=== PATIENT | male | born 2000 | race Caucasian/White ===

== ENCOUNTER 2019-01-25 04:24 | Emergency (ER) | payer OTHER, BC, SELFPAY ==
[2019-01-25 04:25] VITALS: BP 114/76; PULSE 122; RESP 18; TEMP 37.9; O2SAT 96; BMI 26.9
--- NOTE | 2019-01-25 04:40 | RAD_ITS ---
STUDY: X-RAY CHEST REASON FOR EXAM: Male, 18 years old. Cough TECHNIQUE: Frontal and lateral views of the chest. COMPARISON: None. FINDINGS: The lungs are clear and expanded. There is no demonstrated pleural abnormality. Normal size heart. Normal mediastinum and josh. Normal visualized pulmonary arteries. Normal visualized aortic arch and descending thoracic aorta. Normal visualized thoracic spine. Normal visualized ribs, clavicles, and shoulders. There is no demonstrated abnormality of the visualized soft tissue structures of the upper abdomen. RAD/Chest PA and Lateral IMPRESSION: Normal x-ray examination of the chest. Electronically Signed: Balwinder Torres MD at 5:18 EDT Tel , Service support ,
[2019-01-25] MEDS: 0.9% Normal Saline 1,000 ML 999 ML IV (04:52)
[2019-01-25] MEDS: Metoclopramide 10 MG/2 ML Vial IV (04:52)
[2019-01-25] MEDS: Ketorolac 30 MG/ML Syringe IV (04:54)
[2019-01-25 06:25] VITALS: BP 110/60; PULSE 96; RESP 16; TEMP 36.9; O2SAT 98
--- NOTE | 2019-01-25 06:26 | ED.VISSUMM ---
- ER Visit Summary Date of Service: 01/25/19 Chief Complaint: I feel really bad History of Present Illness: The patient is a 18 M who presents with an influenza-like illness. He complains of 1 day of fever chills sweats. He had a temperature of 102.9. He complains of congestion rhinorrhea productive cough muscle aches joint aches headaches. He is concerned because he was recently visiting home with his brother who was diagnosed with mononucleosis, influenza, walking pneumonia. He also states that there was nearby outbreak of mumps. He states he started taking some leftover Augmentin that he had. No vomiting. No diarrhea. No shortness of breath. Physical Examination: Temperature 100.2, heart rate 122 Pulse ox 96% on room air Patient is not toxic appearing He does appear slightly anxious Heart is regular rhythm tachycardia Lungs are clear Abdomen soft nontender Test Results: Chest x-ray is normal. Emergency Department Course and Treatment: Although patient is tachycardic he states that he has white coat syndrome and attributes some of this to anxiety. A chest x-ray was obtained which is normal. I told him that I do suspect that this is influenza. However given his age and lack of comorbidities I would not recommend Tamiflu at this point as I feel adverse effects would likely outweigh benefit. He was therefore advised on supportive care including anti-inflammatories and drinking fluids. He does understand return for new or worsening symptoms. He was discharged. Treatment Plan: [] Disposition: Discharge Impression: Influenza-like illness This note was generated with [employer] dictation software. It may contain incorrect words, spelling, and punctuation that were not noted in review of the chart prior to signing ED Disposition - Plan for ED Patient: Referrals: [facility] Doctor,Out of [Primary Care Provider] -
--- NOTE | 2019-01-25 06:28 | ED.DEP ---
ED Disposition - Plan for ED Patient: Instructions: ED Flu Referrals: [facility] Doctor,Out of [Primary Care Provider] -
== END 2019-01-25 06:40 | disposition home or self-care (01) ==
LOC: ED 05:00
PROVIDERS: Emergency Provider Emergency Medicine
DX: J11.1 Influenza due to unidentified influenza virus with other respiratory manifestations (principal); Z79.899 Other long term (current) drug therapy
CPT/HCPCS: 71046; 96361; 96374; 96375; 99283; J7030; A4216

== ENCOUNTER 2019-10-12 14:10 | Emergency (ER) | payer BC, SELFPAY ==
[2019-10-12 14:11] VITALS: BP 127/92; PULSE 101; RESP 18; TEMP 37.1; O2SAT 98; BMI 26.6
--- NOTE | 2019-10-12 14:26 | RAD_ITS ---
STUDY: X-RAY - RIGHT TIBIA AND FIBULA REASON FOR EXAM: Male, 18 years old. Midleg redness and swelling. TECHNIQUE: 3 view(s) of the tibia and fibula were obtained. COMPARISON: None. FINDINGS: Normal visualized tibia. Normal visualized fibula. There is no acute fracture, dislocation or destructive osseous pathology. The knee and ankle appear intact. The soft tissue structures are unremarkable. RAD/Tibia & Fibula 2 Views IMPRESSION: Normal x-ray examination of the tibia and fibula. Electronically Signed: Biran Jauregui DO at 16:19 EST Tel [phone], Service support ,
[2019-10-12] MEDS: Doxycycline 100 MG CAPSULE PO (14:30)
[2019-10-12] MEDS: Naproxen 250 MG Tablet 500 MG PO (14:30)
--- NOTE | 2019-10-12 15:29 | ED.VISSUMM ---
- ER Visit Summary Date of Service: 10/12/19 Chief Complaint: Redness to right leg History of Present Illness: The patient is a 18 M with no primary care physician. He reports that he was taking off his shoes 2 days ago and hit the anterior surface of his right leg with his left heel. Reports that he immediately had a small red torres. However, over the past 2 days the redness is extended and he is having more pain. Describes a sharp pain that is 7 out of 10 with walking and 2 out of 10 at rest. He denies any constitutional symptoms. No fever, chills, vomiting, or other complaints. Physical Examination: Vitals: Stable. Afebrile. General: Well-nourished and well-developed. Head: Normocephalic atraumatic. Neck: Supple, no lymphadenopathy. No JVD. Nontender. Cardiovascular: Regular rate and rhythm. No murmurs. Respiratory: No respiratory distress. Clear to auscultation bilaterally. Abdominal: Soft, nontender, nondistended, normal bowel sounds. No guarding, rebound, or peritoneal signs. Back: Nontender. Extremities: Moderate tenderness palpation over the anterior surface of his right tibia. There is mild erythema. No induration or fluctuance to suggest abscess. He has a 2+ dorsalis pedis pulse. Neurologic: Alert and oriented ?3. Cranial nerves II through XII are intact. Normal strength and sensation. Psych: Normal affect. Test Results: Right tib-fib x-ray shows no acute disease. Emergency Department Course and Treatment: Patient was treated with naproxen and doxycycline. He is resting comfortably. Treatment Plan: Patient will be discharged naproxen and doxycycline. Instructed to follow-up Dr. Siu in 2 days for wound check. Return to the emergency department for any worsening symptoms. Disposition: To home in improved and stable condition. Impression: 1. Cellulitis right leg. This note was generated with [employer] dictation software. It may contain incorrect words, spelling, and punctuation that were not noted in review of the chart prior to signing ED Disposition - Plan for ED Patient: Disposition: Home or Assisted Living Instructions: Cellulitis Prescriptions: Doxycycline 100 mg PO BID #14 cap Prescription Printed Naproxen [Naprosyn] 500 mg PO BID #14 tab Prescription Printed Referrals: Irving Siu DO [NON CLINICAL AFFILIATE] - 2 Days for wound check
[2019-10-12 15:42] VITALS: BP 125/74; PULSE 82; RESP 18; O2SAT 97
== END 2019-10-12 15:43 | disposition home or self-care (01) ==
LOC: ED 14:38
PROVIDERS: Emergency Provider Emergency Medicine
DX: L03.115 Cellulitis of right lower limb (principal)
CPT/HCPCS: 73590; 99283

== ENCOUNTER 2020-01-06 05:33 | Emergency (ER) | payer BC, SELFPAY ==
[2020-01-06 05:34] VITALS: BP 122/85; PULSE 70; RESP 16; TEMP 36.7; O2SAT 100; BMI 27.6
--- NOTE | 2020-01-06 05:50 | ED.VIS.UPPEX ---
History of Present Illness Chief Complaint: Other, Pain/Inj Detail of Chief Complaint: Tight ring Informant: Patient Occurred: Today Onset: Today Context: Gradual Onset Timing: Continuous Quality of Pain: Aching - Sore Location: Right ring finger Current Severity: Mild Maximum Severity: Mild Worsened by: Trying to remove ring Relieved by: Leaving alone Associated Symptoms: Negative for: Parasthesia, Weakness, Loss of Funtion Narrative: Patient has had a ring on his right ring finger all day, he tried to get it off today but it is too tight and the more he has tried, the more swelling he is having in pain. He denies any numbness or pallor to his ring finger. Past Medical History - Allergies and Home Meds Allergies/Adverse Reactions: Allergies TAPE Allergy (Uncoded 01/06/20 05:34) Rash Primary Care Physician: Care Physician,No Primary [Primary Care Provider] - Past Medical History: None Lives: Roommate Smoking Status: Never smoker Review of Systems Musculoskeletal: Reports: Extremity Pain Neurological: Denies: Weakness, Parasthesia, Numbness Physical Exam Vital Signs/Narrative: Vital Signs Temp Pulse Resp BP Pulse Ox 01/06/20 05:34 98.1 F 70 16 122/85 H 100 General: Well nourished, Well developed Head: Normocephalic, Atraumatic Extremeties: Right ring finger with a yellow gold ring, it is loosely fitting until you pull it to the PIPJ, where it is tight and will not go beyond. No signs of ischemia. Skin intact. All tendon function intact. No sign of infection. Skin: Normal color, No rash, No Trauma - Skin intact right ring finger Neurological: Alert, Oriented x3, Cranial nerves II-XII grossly intact, Normal Strength, Normal Sensation Psychological: Normal affect, Normal Mood Diagnostic/Tx/Re-eval - Medical Decision Making Discussed options, patient wanted the ring cut and removed. This was done. See the procedure note. It was given to the patient. Procedures Procedure(s): Foreign body removal right ring finger -- using a manual ring cutter, ring was gently removed and pried from the patient's finger without injury or complication. ED Disposition - Plan for ED Patient: Disposition: Home or Assisted Living Diagnosis: Tight ring on finger Referrals: [facility] [GROUP OF PHYSICIANS] - As Needed Additional Instructions: If you have any residual pain or swelling in your finger, ice, ibuprofen, Tylenol as needed.
[2020-01-06 06:02] VITALS: RESP 16
== END 2020-01-06 06:02 | disposition home or self-care (01) ==
LOC: ED 05:58
PROVIDERS: Emergency Provider Emergency Medicine
DX: S60.449A External constriction of unspecified finger, initial encounter (principal); W49.04XA Ring or other jewelry causing external constriction, initial encounter; Y93.89 Activity, other specified; Y92.89 Other specified places as the place of occurrence of the external cause; Y99.8 Other external cause status
CPT/HCPCS: 99282